=== PATIENT | female | born 1970 | race Caucasian/White ===

== ENCOUNTER 2017-05-27 13:15 | Emergency (ER) | payer SELFPAY ==
--- NOTE | 2017-05-27 15:29 | RAD ---
RIGHT FOOT THREE VIEWS: History: 46-year-old female with history of metatarsal pain after a fall from porch. FINDINGS: There appears to be minimal soft tissue of the dorsal aspect of the forefoot. Mild degenerative lo es of the foot including the first metatarsal phalangeal joint. No acute fracture or dislocation. Bip artite medial sesamoid bone at the first metatarsal phalangeal joint. IMPRESSION: No acute fracture or dislocation. Mild degenerative changes. Minimal anterior soft tissue swelling. POS: [id number]
== END 2017-05-27 16:18 | disposition home or self-care (01) ==
LOC: ERS 13:15
DX: S91.311A Laceration without foreign body, right foot, initial encounter (principal); F32.9 Major depressive disorder, single episode, unspecified; F17.210 Nicotine dependence, cigarettes, uncomplicated; I10 Essential (primary) hypertension; Z79.899 Other long term (current) drug therapy; W10.9XXA Fall (on) (from) unspecified stairs and steps, initial encounter

== ENCOUNTER 2017-08-26 07:42 | Emergency (ER) | payer SELFPAY | END 2017-08-26 08:18 | disposition left against medical advice (07) | LOC: ERS 07:42 | DX: Z53.21 Procedure and treatment not carried out due to patient leaving prior to being seen by health care provider (principal) ==

== ENCOUNTER 2018-02-20 11:42 | Emergency (ER) | payer SELFPAY | END 2018-02-20 13:39 | disposition home or self-care (01) | LOC: ERS 11:42 | DX: L03.811 Cellulitis of head [any part, except face] (principal); B35.0 Tinea barbae and tinea capitis; I10 Essential (primary) hypertension; Z71.6 Tobacco abuse counseling; F17.210 Nicotine dependence, cigarettes, uncomplicated | CPT/HCPCS: 99406 ==

== ENCOUNTER 2018-12-30 19:11 | Emergency (ER) | payer OTHER, SELFPAY ==
[2018-12-30] MEDS ORDERED: Dicyclomine 20 MG TAB ONE (20:03)
[2018-12-30] MEDS ORDERED: Mag-Al 1200 mg/1200 mg/30 ML UDCUP ONE (20:03)
[2018-12-30] MEDS ORDERED: Lidocaine Viscous Sol 2% 15 ml UD Cup ONE (20:04)
[2018-12-30 20:46] LABS: Hemoglobin 13.7 g/dL (12.0-16.0); Mean Corpuscular HGB CONC 32.8 g/dL (32.0-36.0); Mean Corpuscular Hemoglobin 26.9 pg (27.0-31.0); Mean Corpuscular Volume 82.1 fL (78.0-98.0); Mean Platelet Volume 8.4 fL (7.4-10.4); Platelet Count 309 thou/uL (130-400); RBC Distribution Width 13.6 % (11.5-14.5); Red Blood Cell (RBC) Count 5.11 mill/uL (4.20-5.40); White Blood Cell (WBC) Count 6.9 thou/uL (4.8-10.8)
[2018-12-30 20:59] LABS: BHCG - Serum Negative (NEGATIVE)
[2018-12-30 21:00] LABS: Pregs Control Background? CLEAR/WHITE (CLR/WHITE); Pregs Control Bar Appear? YES (CONTROL BAR)
[2018-12-30 21:04] LABS: Band 1 % (5-11); Lymphocytes 29 % (21-51); MDiff Complete? YES; Monocytes 7 % (0-10); Neutrophil 63 % (42-75)
[2018-12-30 21:05] LABS: ALT (SGPT) 11 U/L (8-55); AST (SGOT) 16 U/L (5-34); Albumin 4.7 g/dL (3.5-5.0); Alkaline Phosphatase 86 U/L (40-150); Anion Gap 18 mmol/L (10-20); BUN (Urea Nitrogen) 12 mg/dL (7.0-18.7); Bilirubin, Total 0.4 mg/dL (0.2-1.2); Calc. Creatinine Clearance 0 mL/min (70-130); Calcium 10.1 mg/dL (7.8-10.44); Carbon Dioxide 24 mmol/L (22-29); Chloride 101 mmol/L (98-107); Estimated GFR-MDRD 48; Globulin 3.5 g/dL (2.4-3.5); Glucose 86 mg/dL (70-105); Lipase 27 U/L (8-78); Potassium 4.9 mmol/L (3.5-5.1); Protein, Total 8.2 g/dL (6.0-8.3); Sodium 138 mmol/L (136-145)
--- NOTE | 2018-12-30 21:41 | RAD ---
Chest one view Abdomen 2 views HISTORY: Abdomen pain. FINDINGS: Cardiac silhouette and pulmonary vasculature are unremarkable. Mediastinum is midline. No c onfluent airspace consolidation or evidence of free subdiaphragmatic gas. Large amount of stool throughout the colon. No differential air-fluid levels or evidence of free subd iaphragmatic gas. IMPRESSION: Constipation.
== END 2018-12-30 22:09 | disposition home or self-care (01) ==
LOC: ERS 19:11
DX: K59.00 Constipation, unspecified (principal); I10 Essential (primary) hypertension; F17.210 Nicotine dependence, cigarettes, uncomplicated; Z79.899 Other long term (current) drug therapy
CPT/HCPCS: 36415; 74022; 80053; 83690; 84703; 85025; 96372; J0500

== ENCOUNTER 2019-01-25 10:16 | Outpatient (CLI) | payer OTHER ==
--- NOTE | 2019-01-25 11:22 | ULT ---
Right upper quadrant ultrasound: 01/25/2019 COMPARISON: None HISTORY: Right upper quadrant pain TECHNIQUE: Multiplanar grayscale sonographic imaging of the right upper quadrant provided. FINDINGS: The imaged pancreas is unremarkable, the head and tail partially obscured by bowel gas. No focal liver lesion or intrahepatic biliary dilatation is noted. The common bile duct measures 5-6 mm, upper limits of normal in size. No gallbladder wall thickening or pericholecystic fluid. 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 There are numerous shadowing stones noted throughout the gallbladder lumen. The right kidney measures 9.6 cm in craniocaudal dimension and demonstrates no stone, hydronephrosis, or mass lesion. IMPRESSION: Cholelithiasis. No sonographic evidence of cholecystitis or biliary dilatation.
== END 2019-01-25 10:17 | disposition home or self-care (01) ==
LOC: BICULT 10:16
PROVIDERS: ATTEND Family Medicine
DX: R10.10 Upper abdominal pain, unspecified (principal); K80.20 Calculus of gallbladder without cholecystitis without obstruction
CPT/HCPCS: 76705

== ENCOUNTER 2021-04-14 09:27 | Emergency (ER) | payer SELFPAY | END 2021-04-14 13:25 | disposition left against medical advice (07) | LOC: ERS 09:27 | DX: Z53.21 Procedure and treatment not carried out due to patient leaving prior to being seen by health care provider (principal) ==

== ENCOUNTER 2021-04-15 12:16 | Emergency (ER) | payer SELFPAY ==
[2021-04-15] MEDS ORDERED: HYDROcodone/Acetaminophen 5/325 mg Tablet ONE (13:33)
[2021-04-15] MEDS ORDERED: Ketorolac Tromethamine 30 MG/ML VIAL ONE (13:33)
== END 2021-04-15 14:03 | disposition home or self-care (01) ==
LOC: ERS 12:16
DX: B02.9 Zoster without complications (principal); I10 Essential (primary) hypertension; E03.9 Hypothyroidism, unspecified; F17.210 Nicotine dependence, cigarettes, uncomplicated
CPT/HCPCS: 96372; 99282; J1885

== ENCOUNTER 2023-08-23 16:09 | Emergency (ER) | payer SELFPAY ==
[2023-08-23 16:42] LABS: Bacteria/HPF None Seen HPF (None Seen); Bilirubin Negative (Negative); Blood, Urine Trace (Negative); CAUTI Indications for Culture Pelvic or flank pain; Clarity Clear (Clear); Glucose, Urine (Dipstick) Normal (Negative); Ketone, Urine Negative (Negative); Leukocyte Negative Leu/uL (Negative); Nitrite Negative (Negative); Protein, Urine (Dipstick) Negative (Neg-Trace); RBC/HPF 0-3 HPF (0-3); Specific Gravity, Urine 1.005 (1.002-1.036); Squamous Epithelial None Seen HPF (0-3); Urobilinogen Normal mg/dL (Less than 2); WBC/HPF None Seen HPF (0-3)
[2023-08-23 16:48] LABS: Urine Culture Reflex No No
[2023-08-23 17:27] LABS: #Basophils 0.1 thou/uL (0.0-0.2); #Eosinphils 0.1 thou/uL (0.0-0.7); #Monocytes 0.4 thou/uL (0.11-0.59); #Neutrophils 5.8 thou/uL (1.40-6.50); %Basophils 0.6 % (0.0-1.0); %Eosinophils 0.8 % (0.0-10.0); %Lymphocytes 19.2 % (21.0-51.0); %Monocytes 5.6 % (0.0-10.0); %Neutrophils 73.4 % (42.0-75.0); Hemoglobin 14.5 g/dL (12.0-16.0); Mean Corpuscular HGB CONC 31.5 g/dL (32.0-36.0); Mean Corpuscular Hemoglobin 26.4 pg (27.0-31.0); Mean Corpuscular Volume 83.8 fl (78.0-98.0); Mean Platelet Volume 9.3 fL (7.4-10.4); Platelet Count 391 10x3/uL (130-400); Red Blood Cell (RBC) Count 5.49 mill/uL (4.20-5.40); White Blood Cell (WBC) Count 7.8 10x3/uL (4.8-10.8)
[2023-08-23 18:41] LABS: ALT (SGPT) 11 U/L (8-55); AST (SGOT) 19 U/L (5-34); Albumin 4.5 g/dL (3.5-5.0); Alkaline Phosphatase 83 U/L (40-110); Anion Gap 12 mmol/L (10-20); BUN (Urea Nitrogen) 14 mg/dL (9.8-20.1); Bilirubin, Total 0.4 mg/dL (0.2-1.2); Calc. Creatinine Clearance 0 mL/min (70-130); Carbon Dioxide 27 mmol/L (22-29); Chloride 100 mmol/L (98-107); Estimated GFR 61; Globulin 3.3 g/dL (2.4-3.5); Glucose 84 mg/dL (70-105); Potassium 4.1 mmol/L (3.5-5.1); Protein, Total 7.8 g/dL (6.0-8.3); Sodium 135 mmol/L (136-145)
== END 2023-08-23 19:02 | disposition home or self-care (01) ==
LOC: ERS 16:09
DX: I10 Essential (primary) hypertension (principal); E03.9 Hypothyroidism, unspecified; G89.29 Other chronic pain; M54.9 Dorsalgia, unspecified; F17.210 Nicotine dependence, cigarettes, uncomplicated; Z76.0 Encounter for issue of repeat prescription; Z55.6 Problems related to health literacy
CPT/HCPCS: 36415; 80053; 81001; 85025; 99283

== ENCOUNTER 2023-09-13 12:52 | Emergency (ER) | payer SELFPAY ==
[2023-09-13] MEDS ORDERED: Morphine 4 MG/ML VIAL ONE (13:19)
[2023-09-13] MEDS ORDERED: Ondansetron PF 4 MG/2 ML Vial ONE (13:19)
[2023-09-13] MEDS ORDERED: Iopamidol-370 76% 500 ML MDV (1 ML CHARGE) ONE (13:34)
[2023-09-13 13:52] LABS: #Monocytes 0.7 thou/uL (0.11-0.59); #Neutrophils 6.4 thou/uL (1.40-6.50); %Basophils 0.4 % (0.0-1.0); %Eosinophils 0.5 % (0.0-10.0); %Lymphocytes 14.1 % (21.0-51.0); %Monocytes 7.9 % (0.0-10.0); %Neutrophils 76.9 % (42.0-75.0); Hematocrit 43.6 % (36.0-47.0); Hemoglobin 14.1 g/dL (12.0-16.0); Mean Corpuscular HGB CONC 32.3 g/dL (32.0-36.0); Mean Corpuscular Hemoglobin 26.7 pg (27.0-31.0); Mean Corpuscular Volume 82.4 fl (78.0-98.0); Mean Platelet Volume 9.7 fL (7.4-10.4); Platelet Count 367 10x3/uL (130-400); RBC Distribution Width 15.9 % (11.5-14.5); Red Blood Cell (RBC) Count 5.29 mill/uL (4.20-5.40); White Blood Cell (WBC) Count 8.3 10x3/uL (4.8-10.8)
[2023-09-13 14:15] LABS: ALT (SGPT) 491 U/L (8-55); AST (SGOT) 299 U/L (5-34); Albumin 4.1 g/dL (3.5-5.0); Alkaline Phosphatase 311 U/L (40-110); Anion Gap 15 mmol/L (10-20); BUN (Urea Nitrogen) 22 mg/dL (9.8-20.1); Bilirubin, Total 2.6 mg/dL (0.2-1.2); Calc. Creatinine Clearance 0 mL/min (70-130); Calcium 9.6 mg/dL (7.8-10.44); Carbon Dioxide 23 mmol/L (22-29); Chloride 101 mmol/L (98-107); Estimated GFR 40; Globulin 3.3 g/dL (2.4-3.5); Glucose 103 mg/dL (70-105); Potassium 3.9 mmol/L (3.5-5.1); Protein, Total 7.4 g/dL (6.0-8.3); Sodium 135 mmol/L (136-145)
[2023-09-13 14:17] LABS: Troponin I 0.018 ng/mL (< 0.028)
[2023-09-13 14:41] LABS: Lipase 8883 U/L (8-78)
[2023-09-13 15:13] LABS: Bacteria/HPF None Seen HPF (None Seen); Bilirubin Negative (Negative); Blood, Urine Negative (Negative); CAUTI Indications for Culture Dysuria,urgency,freq; Clarity Clear (Clear); Glucose, Urine (Dipstick) Normal (Negative); Ketone, Urine Negative (Negative); Leukocyte Negative Leu/uL (Negative); Nitrite Negative (Negative); Protein, Urine (Dipstick) Negative (Neg-Trace); RBC/HPF 0-3 HPF (0-3); Specific Gravity, Urine 1.005 (1.002-1.036); Squamous Epithelial 0-3 HPF (0-3); Urobilinogen Normal mg/dL (Less than 2); WBC/HPF None Seen HPF (0-3)
[2023-09-13 15:14] LABS: Urine Culture Reflex No No
== END 2023-09-13 18:10 | disposition left against medical advice (07) ==
LOC: ERS 12:52
DX: N20.0 Calculus of kidney (principal); K85.10 Biliary acute pancreatitis without necrosis or infection; N17.9 Acute kidney failure, unspecified; I10 Essential (primary) hypertension; F14.10 Cocaine abuse, uncomplicated; E03.9 Hypothyroidism, unspecified; F17.210 Nicotine dependence, cigarettes, uncomplicated; Z55.6 Problems related to health literacy; Z79.899 Other long term (current) drug therapy
CPT/HCPCS: 36415; 71045; 74177; 76705; 80053; 81001; 83605; 83690; 84484; 85025; 87040; 93005; 96361; 96374; 96375; J2270; J2405; Q9967

== ENCOUNTER 2023-09-18 02:41 | Emergency (ER) | payer OTHER, SELFPAY ==
[2023-09-18] MEDS ORDERED: Ondansetron PF 4 MG/2 ML Vial ONE (02:59)
[2023-09-18] MEDS ORDERED: Morphine 4 MG/ML VIAL ONE (02:59)
[2023-09-18 03:18] LABS: #Eosinphils 0.1 thou/uL (0.0-0.7); #Monocytes 0.6 thou/uL (0.11-0.59); #Neutrophils 4.6 thou/uL (1.40-6.50); %Basophils 0.3 % (0.0-1.0); %Eosinophils 0.9 % (0.0-10.0); %Lymphocytes 20.3 % (21.0-51.0); %Monocytes 9.1 % (0.0-10.0); %Neutrophils 69.1 % (42.0-75.0); Hemoglobin 12.8 g/dL (12.0-16.0); Mean Corpuscular Hemoglobin 26.4 pg (27.0-31.0); Mean Corpuscular Volume 82.6 fl (78.0-98.0); Mean Platelet Volume 10.2 fL (7.4-10.4); Platelet Count 393 10x3/uL (130-400); RBC Distribution Width 16.7 % (11.5-14.5); Red Blood Cell (RBC) Count 4.84 mill/uL (4.20-5.40); White Blood Cell (WBC) Count 6.7 10x3/uL (4.8-10.8)
[2023-09-18 03:42] LABS: ALT (SGPT) 340 U/L (8-55); AST (SGOT) 293 U/L (5-34); Albumin 4.2 g/dL (3.5-5.0); Alkaline Phosphatase 745 U/L (40-110); Anion Gap 15 mmol/L (10-20); BUN (Urea Nitrogen) 24 mg/dL (9.8-20.1); Bilirubin, Total 1.7 mg/dL (0.2-1.2); Calc. Creatinine Clearance 0 mL/min (70-130); Carbon Dioxide 27 mmol/L (22-29); Chloride 103 mmol/L (98-107); Estimated GFR 42; Globulin 3.4 g/dL (2.4-3.5); Glucose 97 mg/dL (70-105); Lipase 188 U/L (8-78); Magnesium 2.1 mg/dL (1.6-2.6); Potassium 4.2 mmol/L (3.5-5.1); Protein, Total 7.6 g/dL (6.0-8.3); Sodium 141 mmol/L (136-145)
[2023-09-18 05:25] LABS: Bacteria/HPF None Seen HPF (None Seen); Bilirubin Negative (Negative); Blood, Urine Negative (Negative); CAUTI Indications for Culture Pelvic or flank pain; Clarity Clear (Clear); Glucose, Urine (Dipstick) Normal (Negative); Ketone, Urine Negative (Negative); Leukocyte Negative Leu/uL (Negative); Nitrite Negative (Negative); Protein, Urine (Dipstick) Negative (Neg-Trace); RBC/HPF 0-3 HPF (0-3); Specific Gravity, Urine 1.012 (1.002-1.036); Squamous Epithelial None Seen HPF (0-3); Urobilinogen 6 mg/dL (Less than 2); WBC/HPF 0-3 HPF (0-3); pH, Urine 7.5 (5.0-9.0)
[2023-09-18 05:29] LABS: Urine Culture Reflex No No
== END 2023-09-18 06:56 | disposition home or self-care (01) ==
LOC: ERS 02:41
DX: R74.8 Abnormal levels of other serum enzymes (principal); I10 Essential (primary) hypertension; E03.9 Hypothyroidism, unspecified; F17.210 Nicotine dependence, cigarettes, uncomplicated; Z79.899 Other long term (current) drug therapy; Z55.6 Problems related to health literacy
CPT/HCPCS: 36415; 76705; 80053; 81001; 83690; 83735; 85025; 93005; 96361; 96374; 96375; J2270; J2405

== ENCOUNTER 2024-07-11 10:21 | Emergency (ER) | payer OTHER ==
[2024-07-11] MEDS ORDERED: Ketorolac Tromethamine 30 MG (1 mL) VIAL ONE (11:26)
== END 2024-07-11 12:05 | disposition home or self-care (01) ==
LOC: ERS 10:21
DX: H60.92 Unspecified otitis externa, left ear (principal); K04.7 Periapical abscess without sinus; E03.9 Hypothyroidism, unspecified; I10 Essential (primary) hypertension; F17.210 Nicotine dependence, cigarettes, uncomplicated; Z79.899 Other long term (current) drug therapy
CPT/HCPCS: 96372; 99282; J1885